=== PATIENT | male | born 1970 | race Caucasian/White ===

== ENCOUNTER 2018-02-21 10:00 | Outpatient (RCR) | payer OTHER, SELFPAY ==
--- NOTE | 2018-01-31 20:48 | HP.PTEVAL_ITS ---
Patient's Visit Information KAROL ENAMORADO is a 47 year old M referred to Physical Therapy by Eliseo Ryder with a diagnosis of L shoulder OA. Date of Evaluation: 01/31/18 Physical Therapist: Amaury Lawrence PT, - Visit Plan Frequency: 2x /Week Duration: 4 Weeks Plan: Assess response, progress forces if able. Resume thoracic extension stretch. - Subjective Subjective: Pt with ~1 year hx of L shoulder pain. it has worsend in the past two months. He initally had L shoulder pain a year but but recently started having neck and pain down the L UE to the wrists. This was an insidious onset. Chief c/o is superior L shoulder pain and describes it as achy. Agrevating factors: sitting at rest, OH activiites, sleeping, long drives. Easing factor: shrugging shoulders. 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 Denies weakness, trauma, no hx of surgery or injection, occational n/t in UE - Pain L shoulder Pain Intensity (Out of 10): 2 Pain Intensity Range: 10 L scapula Pain Intensity (Out of 10): 0 Pain Intensity Range: 10 - Objective OBSERVATION: forward head, increaed thoracic kyphosis, uncomfortable at times in sitting. ROM: R shoudler WNL, L shoulder flexion* 114, abd* 108, ER/IR WNL. Cervical flexion *, ext WNL, L rotation* 25% limited, L LF* 50% limited. REPEATED MOTIONS: Loaded extension and retraction: worse. Unloaded retraction with 3 pillows: better. STRENGTH: B shoulder gross 5/5 - Special Tests C/S Radiculapathy - Left Upper limb tension test: Positive C/S Radiculapathy - Right Upper limb tension test: Negative C/S Radiculapathy - Left Spurlings: Positive C/S Radiculapathy - Right Spurlings: Negative C/S Radiculapathy - Left Cervical distraction: Positive Vertebral Artery Test: Negative Cervical Sitting: Protrusion - Mechanical Response: No effect Cervical Sitting: Protrusion - Symptoms During Testing: No effect Cervical Sitting: Protrusion - Symptoms After Testing: No effect Cervical Sitting: Retraction - Mechanical Response: No effect Cervical Sitting: Retraction - Symptoms During Testing: Increases Cervical Sitting: Retraction - Symptoms After Testing: Worse Cervical Sitting: Retraction-Extension - Mechanical Response: No effect Cerv Sitting: Retraction-Extension - Symptoms During Testing: Increases Cerv Sitting: Retraction-Extension - Symptoms After Testing: Worse Cervical Lying: Retraction - Mechanical Response: Increases motion Cervical Lying: Retraction - Symptoms During Testing: Decreases Cervical Lying: Retraction - Symptoms After Testing: Better - Goals Goal 1:: Pt will demonstrate full shoulder and cervical ROM to improve tolerance with work. Goal Time Frame: 4-6 Weeks Goal 2:: pt will report no limitations or pain with driving. Goal Time Frame: 4-6 Weeks Goal 3:: Pt will demonstrate proper posture in clinic without cues. Goal Time Frame: 4-6 Weeks Goal 4:: Pt will be able to return ADLs and job demands without limitations. Goal Time Frame: 4-6 Weeks - Rehabilitation Potential Physical Therapy Diagnosis: Pt is 47 y/o male with referral from Dr. Ryder for L shoulder OA. The patient reports symptoms over the L shoulder and scapular region with occational radicular symptoms. The patient has limited shoulder AROM but full, non-painful PROM and strength. Pt's symptoms and objective testing may indicate a cervical component to his symptoms. Symptoms were reduced with repeated movements in lying and traction. Pt has activity limitations with OH reaching, sleeping, and driving for long periods of time. This affects his participation with work. pt will benefit from skilled PT to address the above impairments. Rehabilitation Potential: Good - Anticipated Interventions Patient/Client Instruction: Educate patient on: Condition, Plan of Care For the Purpose of:: To decrease pain, To increase ROM, To improve muscle performance and motor function, To improve ability to perform ADL's, To increase tolerance to activity/condition/position, To improve ability of physical actions for home/community/work/leisure, To increase flexibility/ROM, To improve endurance, To improve balance, To assume or resume ADL's, To prevent re-injury Therapeutic Exercise to Include: Strength training, Endurance training, Body mechanics, Postural training, Flexibilty training, Passive ROM, Active ROM, Ange Exercises, Scapular Strength/Stabilization For the Purpose of:: To decrease pain, To increase ROM, To improve ability to perform ADL's, To increase tolerance to activity/condition/position, To improve ability of physical actions for home/community/work/leisure, To increase flexibility/ROM, To improve endurance, To improve self management, To prevent re -injury Manual Therapy Techniques to Include: Mobilization, Passive ROM, Soft tissue mobilization For the Purpose of:: To decrease pain, To increase ROM, To improve ability to perform ADL's, To increase tolerance to activity/condition/position, To improve ability of physical actions for home/community/work/leisure, To decrease soft tissue restriction, To increase flexibility/ROM, To prevent re-injury Cryotherapy (ice pack, ice massage): Yes Thermo therapy (hot pack): Yes Ultrasound (thermal/non thermal): Yes For the Purpose of:: To decrease pain, To increase ROM, To increase tolerance to activity/condition/position, To improve ability of physical actions for home/ community/work/leisure, To decrease soft tissue restriction, To increase flexibility/ROM, To prevent re-injury Thank you for the opportunity to evaluate your patient. For Medicare and Medicare HMO plans, please review the plan of care and approve it. It will need to be FAXED BACK to us at [phone] for Medicare purposes. Please let me know if there are questions or concerns regarding this plan of care. Physician Signature: Date:
--- NOTE | 2018-02-21 12:25 | HP.PTDCSUM ---
HP - PT D/C Summary It has been my pleasure to treat KAROL ENAMORADO under orders from Eliseo Ryder, for the diagnosis of L shoulder OA for a total of 7 visit(s). Discharge Date: 02/21/18 Please see the following information for a summary of their discharge status. - Subjective Subjective: Pt reports contiuned improvement overall with his symptoms. Only reporting scapular symptoms now, L shoulder pain resolved. Sitting is still most irritable position, only able to sit for about 10 minutes until his symptoms increase. He states that today will likely be his last visit due to a changing work schedule. - Pain L shoulder Pain Intensity (Out of 10): 0 L scapula Pain Intensity (Out of 10): 1 - Overall Improvement % Improvement: 60 - Objective Objective/Function: Pt reports ~60% improvement in symptoms. He has met 3/4 PT goals. His main limitation is sitting tolerance. His L shoulder AROM is WNL and is not painful at end ranges. His symptoms are now more localized to the scapular region. He is able to self manage this with repeated retraction with self OP. He was given a prophylatic HEP addressing continued deficits. CERVICAL ROM: cervical ROM WFL retraction ERP ,cerrvical mobs ,retraction abolishes shoulder sx,manual therapy decrease scapular pain. SHOULDER: RTC 4/5 ,DELTOID 4/5 NO PAIN - Goals Goal 1:: Pt will demonstrate full shoulder and cervical ROM to improve tolerance with work. Goal Progress: Goal Met Goal 2:: pt will report no limitations or pain with driving. Goal Progress: Progressing Goal 3:: Pt will demonstrate proper posture in clinic without cues. Goal Progress: Goal Met Goal 4:: Pt will be able to return ADLs and job demands without limitations. Goal Progress: Goal Met - Plan Plan: Discharge with HEP. - D/C Information Discharge Comments: Pt reports ~60% improvement in symptoms. He has met 3/4 PT goals. His main limitation is sitting tolerance. His L shoulder AROM is WNL and is not painful at end ranges. His symptoms are now more localized to the scapular region. He is able to self manage this with repeated retraction with self OP. He was given a prophylatic HEP addressing continued deficits. If there are questions or concerns regarding this patient's physical therapy, please feel free to call me at [phone]. Thank you for the referral of this patient. Sincerely, Amaury Lawrence PT,
== END 2018-02-21 19:00 | disposition home or self-care (01) ==
LOC: PT 10:00
PROVIDERS: Family Provider Family Medicine; PCP Family Medicine; Visit Provider Orthopaedic Surgery
DX: M19.012 Primary osteoarthritis, left shoulder (principal)
CPT/HCPCS: 97012; 97035; 97110; 97162; 97530

== ENCOUNTER → 2020-04-03 09:33 | Outpatient (CLI) | payer OTHER, SELFPAY | PROVIDERS: PCP Family Medicine; Referring Provider Registered Nurse; Visit Provider Registered Nurse | DX: Z11.59 Encounter for screening for other viral diseases (principal) | CPT/HCPCS: 87635; 94799; U0003 ==

== ENCOUNTER → 2020-04-05 10:05 | Outpatient (CLI) | payer BC, SELFPAY ==
--- NOTE | 2020-04-05 10:33 | EKG12_ITS ---
Test Reason : PRE OP Blood Pressure : / mmHG Vent. Rate : 065 BPM Atrial Rate : 065 BPM P-R Int : 152 ms QRS Dur : 112 ms QT Int : 402 ms P-R-T Axes : 042 010 028 degrees QTc Int : 418 ms Normal sinus rhythm Normal ECG No previous ECGs available Confirmed by ANDREW PINTO, RADHA ([id number]), industrial editor RINKU GOMEZ [id number] on 04/08/2020 11:04:21 AM Referred By: Silva Doe Confirmed By:RADHA MORALES MD
[2020-04-05 11:33] LABS: Absolute Lymphocyte Count 2.15 X10^3/uL (0.83-4.51); Absolute Neutrophil Count 2.4 X10^3/uL (2.0-7.7); Basophil# 0.06 X10^3/uL; Basophil% 1.1 % (0-1); Eosinophil# 0.44 X10^3/uL; Eosinophils% 8.1 % (0-5); Hematocrit 45.6 % (40-54); Hemoglobin 15.7 g/dL (13.0-16.5); Lymphocyte # 2.15 X10^3/ul (4.0); Lymphocyte % 39.4 % (19-41); Mean Corp Hgb Conc 34.4 g/dL (32-36); Mean Corpuscular Hgb 29.2 pg (27.0-32.0); Mean Corpuscular Volume 84.9 fL (80-94); Mean Platelet Vol. 9.6 fl (6.2-12.0); Monocyte# 0.43 X10^3/uL; Monocyte% 7.9 % (0-10); NRBC Flagged by Analyzer 0 % (0-5); Neutrophil # 2.36 X10^3/uL (2.7-7.7); Neutrophil % 43.3 % (47-70); Platelet Count 252 K/mm3 (150-450); RBC Distribution Width CV 12.5 % (11.6-14.6); RBC Distribution Width SD 38.5 fl (35.1-43.9); Red Blood Count 5.37 M/mm3 (4.6-6.2); White Blood Count 5.5 K/mm3 (4.4-11.0)
[2020-04-05 11:57] LABS: Anion Gap 5 (5-15); BUN 17 mg/dL (7-18); BUN/Creat Ratio 22.5 RATIO (10-20); Calcium,Total 9.1 mg/dL (8.5-10.1); Chloride 109 mmol/L (98-107); Creatinine, Serum 0.76 mg/dL (0.70-1.30); EST Glomerular Filtration Rate 116 mL/min (>60); Est Glom Filt Rate - Afr Amer 141 mL/min (>60); Glucose 82 mg/dL (74-106); Potassium 3.8 mmol/L (3.5-5.1); Sodium Level 140 mmol/L (136-145)
== END ==
PROVIDERS: PCP Family Medicine; Referring Provider Registered Nurse; Visit Provider Registered Nurse
DX: Z01.818 Encounter for other preprocedural examination (principal); Z01.810 Encounter for preprocedural cardiovascular examination
CPT/HCPCS: 36415; 80048; 85025; 93005

== ENCOUNTER → 2021-08-05 08:39 | Outpatient (CLI) | payer BC, SELFPAY ==
--- NOTE | 2021-08-05 08:43 | EKG12_ITS ---
Test Reason : PREOP Blood Pressure : / mmHG Vent. Rate : 071 BPM Atrial Rate : 071 BPM P-R Int : 160 ms QRS Dur : 110 ms QT Int : 404 ms P-R-T Axes : 041 -11 032 degrees QTc Int : 439 ms Sinus rhythm with occasional Premature ventricular complexes Otherwise normal ECG Confirmed by RAH PINTO, DMITRY ([id number]), senior editor RYAN EASTMAN ([id number]) on 08/06/2021 12:08:14 PM Referred By: Saranya Raymond Confirmed By:DMITRY MONREAL MD
[2021-08-05 09:19] LABS: Absolute Lymphocyte Count 2.11 X10^3/uL (0.83-4.51); Absolute Neutrophil Count 2.7 X10^3/uL (2.0-7.7); Basophil# 0.05 X10^3/uL; Basophil% 0.9 % (0-1); Eosinophil# 0.25 X10^3/uL; Eosinophils% 4.6 % (0-5); Hematocrit 46.3 % (40-54); Hemoglobin 15.7 g/dL (13.0-16.5); Lymphocyte # 2.11 X10^3/ul (0.83-4.51); Lymphocyte % 38.5 % (19-41); Mean Corp Hgb Conc 33.9 g/dL (32-36); Mean Corpuscular Hgb 28.8 pg (27.0-32.0); Mean Corpuscular Volume 84.8 fL (80-94); Mean Platelet Vol. 9.3 fl (6.2-12.0); Monocyte% 7.3 % (0-10); NRBC Flagged by Analyzer 0 % (0-5); Neutrophil # 2.66 X10^3/uL (2.7-7.7); Neutrophil % 48.5 % (47-70); Platelet Count 269 K/mm3 (150-450); RBC Distribution Width CV 12.4 % (11.6-14.6); RBC Distribution Width SD 38.3 fl (35.1-43.9); Red Blood Count 5.46 M/mm3 (4.6-6.2); White Blood Count 5.5 K/mm3 (4.4-11.0)
[2021-08-05 09:46] LABS: Anion Gap 6 (5-15); BUN 19 mg/dL (7-18); BUN/Creat Ratio 22.2 RATIO (10-20); Calcium,Total 9.2 mg/dL (8.5-10.1); Chloride 107 mmol/L (98-107); Creatinine, Serum 0.85 mg/dL (0.70-1.30); EST Glomerular Filtration Rate 101 mL/min (>60); Est Glom Filt Rate - Afr Amer 122 mL/min (>60); Glucose 95 mg/dL (74-106); Potassium 4.3 mmol/L (3.5-5.1); Sodium Level 139 mmol/L (136-145)
== END ==
PROVIDERS: PCP Family Medicine; Referring Provider Physician Assistant Surgical; Visit Provider Physician Assistant Surgical
DX: Z01.812 Encounter for preprocedural laboratory examination (principal)
CPT/HCPCS: 36415; 80048; 85025; 93005

== ENCOUNTER → 2021-08-18 09:03 | Outpatient (CLI) | payer BC, SELFPAY | PROVIDERS: PCP Family Medicine; Referring Provider Physician Assistant Surgical; Visit Provider Physician Assistant Surgical | DX: Z20.822 Contact with and (suspected) exposure to COVID-19 (principal) | CPT/HCPCS: 87635; C9803; U0005; U0003 ==